=== PATIENT | male | born 1945 | race Caucasian/White ===

== ENCOUNTER 2023-05-04 10:06 | Outpatient (RCR) | payer MEDICARE, SELFPAY | END 2023-05-21 09:51 | disposition home or self-care (01) | LOC: HO.WCC 10:06 | PROVIDERS: PCP Internal Medicine; Visit Provider Physician Assistant | DX: L97.822 Non-pressure chronic ulcer of other part of left lower leg with fat layer exposed (principal); S71.102A Unspecified open wound, left thigh, initial encounter; T84.54XA Infection and inflammatory reaction due to internal left knee prosthesis, initial encounter; B96.5 Pseudomonas (aeruginosa) (mallei) (pseudomallei) as the cause of diseases classified elsewhere; I10 Essential (primary) hypertension; I25.10 Atherosclerotic heart disease of native coronary artery without angina pectoris; I48.91 Unspecified atrial fibrillation; Z96.652 Presence of left artificial knee joint; Z79.01 Long term (current) use of anticoagulants; Z87.891 Personal history of nicotine dependence | CPT/HCPCS: 87070; 87073; 87077; 87186; 87205; 97602; 99213 ==